=== PATIENT | female | born 2000 | race Caucasian/White ===

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

== ENCOUNTER 2025-07-25 23:36 | Observation (INO) | payer BC, OTHER ==
[2025-07-26] MEDS ORDERED: Ketorolac Tromethamine 30 MG (1 mL) VIAL ONE (00:26)
[2025-07-26] MEDS ORDERED: Ondansetron PF 4 MG/2 ML Vial ONE ×3 (00:27→11:00)
[2025-07-26 00:46] LABS: #Basophils 0.03 10x3/uL (0.0-0.2); #Eosinophils 0.15 10x3/uL (0.0-0.7); #Monocytes 0.66 10x3/uL (0.11-0.59); #Neutrophils 14.36 10x3/uL (1.40-6.50); %Basophils 0.2 % (0.0-1.0); %Eosinophils 0.9 % (0.0-10.0); %Lymphocytes 11.9 % (21.0-51.0); %Monocytes 3.8 % (0.0-10.0); %Neutrophils 82.8 % (42.0-75.0); Hematocrit 38.9 % (36.0-47.0); Hemoglobin 12.7 g/dL (12.0-16.0); Mean Corpuscular Hemoglobin 26.5 pg (27.0-31.0); Mean Corpuscular Volume 81.0 fL (78.0-98.0); Platelet Count 331 10x3/uL (130-400); Red Blood Cell (RBC) Count 4.80 mill/uL (4.20-5.40); White Blood Cell (WBC) Count 17.33 10x3/uL (4.8-10.8)
[2025-07-26 00:54] LABS: BHCG - Serum Negative (NEGATIVE); Pregs Control Background? CLEAR/WHITE (CLR/WHITE); Pregs Control Bar Appear? YES (CONTROL BAR)
[2025-07-26 00:55] LABS: Bacteria/HPF None Seen HPF (None Seen); CAUTI Indications for Culture Pelvic or flank pain; Glucose, Urine (Dipstick) Normal (Negative); Leukocyte Negative Leu/uL (Negative); Protein, Urine (Dipstick) 10 mg/dL (Neg-Trace); RBC/HPF 0-3 HPF (0-3); Specific Gravity, Urine 1.026 (1.002-1.036); WBC/HPF None Seen HPF (0-3)
[2025-07-26 01:01] LABS: ALT (SGPT) 29 U/L (Less than 34); AST (SGOT) 32 U/L (11-34); Albumin 4.2 g/dL (3.1-4.5); Alkaline Phosphatase 67 U/L (40-110); Anion Gap 13 mmol/L (10-20); BUN (Urea Nitrogen) 11 mg/dL (7.0-18.7); Bilirubin, Total 0.3 mg/dL (0.3-1.2); Calc. Creatinine Clearance 0 mL/min (70-130); Calcium 9.9 mg/dL (7.8-10.44); Carbon Dioxide 27 mmol/L (22-29); Chloride 103 mmol/L (98-107); Globulin 3.8 g/dL (2.4-3.5); Glucose 123 mg/dL (70-105); Lipase 25 U/L (8-78); Potassium 3.9 mmol/L (3.5-5.1); Sodium 139 mmol/L (136-145)
[2025-07-26 01:04] LABS: Urine Culture Reflex No No
[2025-07-26] MEDS ORDERED: Dextrose 50% Abboject 50 ML SYRINGE SLOW IVP PRN (03:00)
[2025-07-26] MEDS ORDERED: Glucagon 1 MG/ML KIT IM PRN (03:00)
[2025-07-26] MEDS ORDERED: hydrALAZINE 20 MG/ML VIAL SLOW IVP PRN (03:00)
[2025-07-26] MEDS ORDERED: Ondansetron PF 4 MG/2 ML Vial IVP PRN (03:00)
[2025-07-26] MEDS ORDERED: INSULIN REGULAR IN 0.9 % NACL 100 ML IVPB SCH (03:15)
[2025-07-26 04:47] VITALS: BMI 43.8
[2025-07-26] MEDS: HYDROcodone/Acetaminophen 7.5/325 mg Tablet PO PRN (08:20)
[2025-07-26] MEDS ORDERED: Bupivacaine 0.25% HCL 30 ML VIAL ONE (08:53)
[2025-07-26] MEDS ORDERED: Rocuronium Bromide 10 MG/ML (10ML VIAL) ONE (09:25)
[2025-07-26] MEDS ORDERED: Lidocaine 1% PF 5 ML VIAL ONE (09:25)
[2025-07-26] MEDS ORDERED: PROPOFOL 20 ML ONE ×2 (09:26→10:42)
[2025-07-26] MEDS ORDERED: fentaNYL PF 100 MCG/2 ML SYRINGE ONE (09:26)
[2025-07-26] MEDS ORDERED: Iopamidol 370 76% 100 ML VIAL ONE (10:21)
[2025-07-26] MEDS ORDERED: Sevoflurane 250 ML INH ANEST BOTTLE ONE (10:45)
[2025-07-26] MEDS ORDERED: SUGAMMADEX SODIUM 200 MG/2 ML VIAL ONE (11:22)
[2025-07-26] MEDS: Acetaminophen 325 MG TAB PO PRN (20:31)
[2025-07-27 06:10] LABS: #Basophils Less than 0.03 10x3/uL (0.0-0.2); #Eosinophils Less than 0.03 10x3/uL (0.0-0.7); #Monocytes 0.84 10x3/uL (0.11-0.59); #Neutrophils 10.73 10x3/uL (1.40-6.50); %Basophils 0.1 % (0.0-1.0); %Eosinophils 0.0 % (0.0-10.0); %Lymphocytes 16.6 % (21.0-51.0); %Monocytes 6.0 % (0.0-10.0); %Neutrophils 76.4 % (42.0-75.0); Hematocrit 33.3 % (36.0-47.0); Hemoglobin 10.6 g/dL (12.0-16.0); Mean Corpuscular Hemoglobin 26.9 pg (27.0-31.0); Mean Corpuscular Volume 84.5 fL (78.0-98.0); Platelet Count 267 10x3/uL (130-400); Red Blood Cell (RBC) Count 3.94 mill/uL (4.20-5.40); White Blood Cell (WBC) Count 14.06 10x3/uL (4.8-10.8)
[2025-07-27 06:32] LABS: Anion Gap 10 mmol/L (10-20); BUN (Urea Nitrogen) 7 mg/dL (7.0-18.7); Calc. Creatinine Clearance 254 mL/min (70-130); Calcium 8.9 mg/dL (7.8-10.44); Carbon Dioxide 26 mmol/L (22-29); Chloride 108 mmol/L (98-107); Glucose 128 mg/dL (70-105); Potassium 4.1 mmol/L (3.5-5.1); Sodium 140 mmol/L (136-145)
[2025-07-27 08:21] VITALS: BP 112/72; TEMP 97.8
[2025-07-27] MEDS: Simethicone Chewable 80 MG TAB PO PRN (09:53)
== END 2025-07-27 12:23 | disposition home or self-care (01) ==
LOC: ERS 23:36 → T4-B 07-26 03:06
PROVIDERS: ADMIT Surgery; ATTEND Surgery
PROC: 0DTJ4ZZ Resection of Appendix, Percutaneous Endoscopic Approach (ICD-10-PCS; principal; 2025-07-26)
DX: K35.33 Acute appendicitis with perforation, localized peritonitis, and gangrene, with abscess (principal)
CPT/HCPCS: 36415; 74177; 80048; 80053; 81001; 83605; 83690; 84703; 85025; 88304; 96361; 96365; 96375; 96376; G0378; J0169; J0665; J1100; J1885; J2250; J2405; J2543; J2704; J3010; J7120; Q9967

== ENCOUNTER 2025-11-06 14:50 | Emergency (ER) | payer BC ==
[2025-11-06] MEDS ORDERED: Ibuprofen 200 MG TAB ONE (16:57)
== END 2025-11-06 19:48 | disposition home or self-care (01) ==
LOC: ERS 14:50
DX: M25.561 Pain in right knee (principal)